=== PATIENT | male | born 1935 | race Caucasian/White ===

== ENCOUNTER 2017-11-08 00:42 | Emergency (ER) | payer MEDICARE ==
[2017-11-08] MEDS ORDERED: SULFAMETHOX-TMP DS 800/160 TAB ONE (01:32)
[2017-11-08] MEDS ORDERED: CEPHALEXIN 500 MG CAPSULE ONE (01:32)
[2017-11-08 01:35] LABS: BASOPHILS % (AUTO) 3.8 % (0.0-5.0); EOSINOPHILS % (AUTO) 3.6 % (0.0-8.0); HEMATOCRIT 43.3 % (42-54); LYMPHOCYTES % (AUTO) 4.8 % (21.0-51.0); MEAN CORPUSCULAR HGB CONC 34.8 g/dL (32.0-36.0); MONOCYTES % (AUTO) 6.5 % (3.0-13.0); NEUTROPHILS % (AUTO) 81.3 % (40.0-77.0); PLATELET COUNT (AUTO) 179 K/uL (130-400); RED BLOOD CELL COUNT(AUTO) 4.71 MIL/uL (4.50-6.20); RED CELL DISTRIBUTION WIDTH 13.6 % (11.0-15.5); WHITE BLOOD COUNT (AUTO) 6.8 K/uL (4.8-10.8)
[2017-11-08 01:46] LABS: POTASSIUM 3.9 mmol/L (3.5-5.1)
== END 2017-11-08 02:24 | disposition home or self-care (01) ==
LOC: EDH 00:42
DX: L03.115 Cellulitis of right lower limb (principal); I25.10 Atherosclerotic heart disease of native coronary artery without angina pectoris; E07.9 Disorder of thyroid, unspecified; E78.5 Hyperlipidemia, unspecified; N40.0 Benign prostatic hyperplasia without lower urinary tract symptoms; Z95.1 Presence of aortocoronary bypass graft
CPT/HCPCS: 36415; 80048; 85025; 87040

== ENCOUNTER → 2017-12-13 | Outpatient (CLI) | payer MEDICARE | END | disposition home or self-care (01) | LOC: RAH 13:27 | PROVIDERS: ATTEND Family Medicine | DX: I87.323 Chronic venous hypertension (idiopathic) with inflammation of bilateral lower extremity (principal); L03.115 Cellulitis of right lower limb | CPT/HCPCS: 93971 ==

== ENCOUNTER 2018-01-19 09:45 | Emergency (ER) | payer MEDICARE ==
[2018-01-19 10:19] LABS: BASOPHILS % (AUTO) 0.2 % (0.0-5.0); EOSINOPHILS % (AUTO) 4.2 % (0.0-8.0); HEMATOCRIT 41.1 % (42-54); LYMPHOCYTES % (AUTO) 7.9 % (21.0-51.0); MEAN CORPUSCULAR HEMOGLOBIN 31.9 pg (27.0-33.0); MEAN CORPUSCULAR HGB CONC 34.6 g/dL (32.0-36.0); MEAN CORPUSCULAR VOLUME 92.2 fL (79-99); MONOCYTES % (AUTO) 6.3 % (3.0-13.0); NEUTROPHILS % (AUTO) 81.4 % (40.0-77.0); PLATELET COUNT (AUTO) 157 K/uL (130-400); RED BLOOD CELL COUNT(AUTO) 4.46 MIL/uL (4.50-6.20); RED CELL DISTRIBUTION WIDTH 13.9 % (11.0-15.5)
[2018-01-19 10:52] LABS: CREATININE 1.1 mg/dL (0.5-1.5); POTASSIUM 3.8 mmol/L (3.5-5.1)
[2018-01-19 10:56] LABS: ALBUMIN 3.3 g/dL (3.5-5.0); BILIRUBIN,TOTAL 0.9 mg/dL (0.2-1.0); TOTAL PROTEIN, SERUM 6.3 g/dL (6.0-8.3)
[2018-01-19] MEDS ORDERED: CLINDAMYCIN 600 MG/D5% WATER 50 ML IV ONE (11:22)
[2018-01-19] MEDS ORDERED: TRAMADOL HCL 50 MG TABLET ONE (11:32)
== END 2018-01-19 13:38 | disposition home or self-care (01) ==
LOC: EDH 09:45
DX: L03.115 Cellulitis of right lower limb (principal); I10 Essential (primary) hypertension; E78.5 Hyperlipidemia, unspecified; I25.10 Atherosclerotic heart disease of native coronary artery without angina pectoris; Z87.891 Personal history of nicotine dependence
CPT/HCPCS: 36415; 80053; 85025; 93971; 96365; 99285; J3490

== ENCOUNTER → 2018-04-06 | Outpatient (CLI) | payer MEDICARE, OTHER ==
[~2018-04-06] MED LIST: ASPI-555 PO; IOHEXOL-350 75 ML VIAL IV ONE; LEVO75TA4 PO; ROSU10TA27 PO; TAMS0.4C32 PO
== END | disposition home or self-care (01) ==
LOC: RAH 08:47
PROVIDERS: ATTEND Internal Medicine Infectious Disease
DX: Z46.82 Encounter for fitting and adjustment of non-vascular catheter (principal); E78.5 Hyperlipidemia, unspecified
CPT/HCPCS: 74177; Q9967

== ENCOUNTER → 2018-04-10 | Outpatient (CLI) | payer MEDICARE, OTHER ==
[~2018-04-10] MED LIST changes: -IOHEXOL-350 75 ML VIAL IV ONE
[2018-04-10 14:12] LABS: INR 0.94 (0.85-1.15); PARTIAL THROMBOPLASTIN TIME 27.8 SEC (26.3-35.5); PROTHROMBIN TIME 9.9 SEC (9.6-11.6)
== END | disposition home or self-care (01) ==
LOC: RAH 13:16
PROVIDERS: ATTEND Family Medicine
DX: K75.0 Abscess of liver (principal); E78.5 Hyperlipidemia, unspecified; E03.8 Other specified hypothyroidism; Z87.891 Personal history of nicotine dependence; Z72.89 Other problems related to lifestyle; I10 Essential (primary) hypertension; N40.0 Benign prostatic hyperplasia without lower urinary tract symptoms; Z86.79 Personal history of other diseases of the circulatory system
CPT/HCPCS: 36415; 85610; 85730

== ENCOUNTER 2019-03-21 17:19 | Observation (INO) | payer MEDICARE, OTHER | END 2019-03-23 15:22 | disposition home or self-care (01) | LOC: EDH 17:19 → 4BH 03-22 14:33 → EDHIP 19:30 → 4CH 22:30 ==

== ENCOUNTER 2019-10-24 11:05 | Emergency (ER) | payer MEDICARE ==
[~2019-10-24 11:05] MED LIST changes: +DOXY100T2 PO; -ROSU10TA27 PO; +ROSU10TA28 PO
== END 2019-10-24 13:15 | disposition home or self-care (01) ==
LOC: EDH 11:05
DX: S62.92XA Unspecified fracture of left hand, initial encounter for closed fracture (principal); S62.609A Fracture of unspecified phalanx of unspecified finger, initial encounter for closed fracture; S63.502A Unspecified sprain of left wrist, initial encounter; S80.01XA Contusion of right knee, initial encounter; S20.20XA Contusion of thorax, unspecified, initial encounter; I25.10 Atherosclerotic heart disease of native coronary artery without angina pectoris; E78.5 Hyperlipidemia, unspecified; Z90.49 Acquired absence of other specified parts of digestive tract; Z87.891 Personal history of nicotine dependence; W18.39XA Other fall on same level, initial encounter; Y93.89 Activity, other specified; Y92.89 Other specified places as the place of occurrence of the external cause; Y99.8 Other external cause status
CPT/HCPCS: 29125; 29130; 71046; 73110; 73130; 73562